=== PATIENT | male | born 1955 | race Caucasian/White ===

== ENCOUNTER 2017-12-13 19:47 | Emergency (ER) | payer BC ==
--- NOTE | 2017-12-13 20:29 | C.PDOC ---
History Of Present Illness 62 year old male is sent to the ED from an urgent care center for evaluation of questionable jaundice and left chest wall discomfort for the past week. Patient had a liver transplant for cryptogenic cirrhosis in . Patient had an abdominal US that was normal. Patient presented to the urgent care center c/o left trapezius pain and left shoulder pain after shoveling snow. Trapezius pain improved after an ice pack. Patient denies fever, chills, nausea. vomit, diarrhea, back pain, dysuria, hematuria. Time Seen by Provider: 12/13/17 20:10 Chief Complaint (Nursing): Upper Extremity Problem/Injury History Per: Patient History/Exam Limitations: no limitations Onset/Duration Of Symptoms: Days Current Symptoms Are (Timing): Gone Modifying Factors: None Exacerbating Factors: None Alleviating Factors: None Recent travel outside of the [place]: No Additional History Per: Patient Past Medical History Reviewed: Historical Data, Nursing Documentation, Vital Signs - Medical History PMH: Malignancy (oral) Other Surgeries: Liver transplant Family History: States: Unknown Family Hx - Social History Hx Tobacco Use: No Hx Alcohol Use: No Hx Substance Use: No - Immunization History Hx Tetanus Toxoid Vaccination: No Hx Influenza Vaccination: No Hx Pneumococcal Vaccination: Yes Review Of Systems Constitutional: Negative for: Fever, Chills Cardiovascular: Positive for: Chest Pain Gastrointestinal: Negative for: Nausea, Vomiting, Abdominal Pain Musculoskeletal: Positive for: Shoulder Pain Skin: Negative for: Rash Neurological: Negative for: Weakness, Numbness, Headache Physical Exam - Physical Exam Appears: Non-toxic, No Acute Distress Skin: Normal Color, Warm, Dry, No Rash Head: Atraumatic, Normacephalic Eye(s): bilateral: Normal Inspection Nose: No Discharge Oral Mucosa: Moist Neck: Normal ROM, Supple Chest: Symmetrical, Tenderness (intercostal left chest t4, t5 midaxillary line) Cardiovascular: Rhythm Regular, No Murmur Respiratory: Normal Breath Sounds, No Rales, No Rhonchi, No Wheezing Gastrointestinal/Abdominal: Soft, No Tenderness, No Guarding, No Rebound, Other ("Y" shaped scar from liver transplant, no pulsatile midline) Extremity: Normal ROM, No Tenderness, No Swelling Neurological/Psych: Oriented x3 Gait: Steady ED Course And Treatment - Laboratory Results Result Diagrams: 12/13/17 20:39 12/13/17 20:39 Lab Interpretation: Abnormal (LFT's mild elev, lipase 408) Progress Note: ice pack to L chest wall Reevaluation Time: 21:16 Reassessment Condition: Improved Medical Decision Making Medical Decision Making: Impression: chest wall discomfort, left trapezius Plan: * Labs * Patient states he wishes not to have any Motrin or Tylenol cause of his history of liver issues. mild elev LFT's prob c/w h/o liver transplant. No prior LFT's to compare. Will give results to pt to f/u with PMD @ [facility] pt NOT icteric- claims to be his mild baseline sallow L chest costochndritis from shoveling snow 1 wk ago, no pna/pnx (cxr earlier today from outside source, report and exam c/w same. Disposition Doctor Will See Patient In The: Office Counseled Patient/Family Regarding: Studies Performed, Diagnosis - Disposition Disposition: HOME/ ROUTINE Disposition Time: 21:18 Condition: GOOD Forms: [facility] (Nigerien) - Clinical Impression Clinical Impression: Chest wall discomfort - Scribe Statement The provider has reviewed the documentation as recorded by the Scribe Yordy Campbell All medical record entries made by the Scribe were at my direction and personally dictated by me. I have reviewed the chart and agree that the record accurately reflects my personal performance of the history, physical exam, medical decision making, and the department course for this patient. I have also personally directed, reviewed, and agree with the discharge instructions and disposition.
[2017-12-13 20:43] LABS: EOS # 0.4 K/uL (0.0-0.7); LYMPH # 0.8 K/uL (1.0-4.3)
[2017-12-13 20:48] LABS: BASO % 1.3 % (0.0-2.0); EOS % 12.2 % (0.0-4.0); HEMOGLOBIN 12.2 g/dL (12.0-18.0); LYMPH % 21.7 % (20.0-40.0); MEAN CELL VOLUME 94.4 fL (80.0-94.0); MEAN CORPUSCULAR HEMOGLOBIN 32.8 pg (27.0-31.0); MEAN CORPUSCULAR HGB CONC 34.7 g/dL (33.0-37.0); MEAN PLATELET VOLUME 7.4 fL (7.2-11.7); MONO # 0.3 K/uL (0.0-0.8); MONO % 7.4 % (0.0-10.0); NEUT % 57.4 % (50.0-75.0); NRBC % 0.1 % (0.0-2.0); RBC 3.71 Mil/uL (4.40-5.90); RED CELL DISTRIBUTION WIDTH 14.8 % (11.5-14.5); WHITE BLOOD COUNT 3.5 K/uL (4.8-10.8)
[2017-12-13 20:53] LABS: SQUAMOUS EPITHIAL 1 /hpf (0-5); URINE BILIRUBIN NEGATIVE (NEGATIVE); URINE BLOOD NEGATIVE (NEGATIVE); URINE CLARITY Clear (Clear); URINE GLUCOSE (UA) NORMAL (Normal); URINE LEUKOCYTE ESTERASE NEG Leu/uL (Negative); URINE PROTEIN NEGATIVE (NEGATIVE)
[2017-12-13 20:54] LABS: ALB/GLOB RATIO 0.9 (1.0-2.1); ALBUMIN 3.8 g/dL (3.5-5.0); ALT/SGPT 232 U/L (21-72); AST/SGOT 217 U/L (17-59); BLOOD UREA NITROGEN 22 mg/dL (9-20); CALCIUM 9.1 mg/dl (8.6-10.4); GFR AFRICAN-AMERICAN > 60; GFR NON-AFRICAN AMERICAN > 60; LIPASE 408 U/L (23-300); URINE COLOR YELLOW (YELLOW)
[2017-12-13 21:39] VITALS: BP 136/88; PULSE 78; RESP 18; TEMP 98.2; O2SAT 97
== END 2017-12-13 21:45 | disposition home or self-care (01) ==
LOC: C.ER 19:47
DX: R07.89 Other chest pain (principal)

== ENCOUNTER 2018-03-20 08:25 | Emergency (ER) | payer BC ==
[2018-03-20 08:38] VITALS: BMI 16.0
[2018-03-20] MEDS ORDERED: DiphenhydrAMINE 50 mg/ml Inj IVP STA (09:29)
--- NOTE | 2018-03-20 09:33 | C.PDOC ---
History Of Present Illness Patient presents to ED c/o diffuse itching for approx 2 weeks. He denies cough , fever, runny nose, SOB, sensation of throat closing up, lip or tongue swelling. He has PMhx of asthma, liver transplant currently on Prograf, PMD and transplant physican are in [place]. Time Seen by Provider: 03/20/18 08:43 Chief Complaint (Nursing): Allergic Reaction History Per: Patient History/Exam Limitations: no limitations Onset/Duration Of Symptoms: Other ( 2 weeks) Current Symptoms Are (Timing): Still Present Severity: Mild Past Medical History Reviewed: Historical Data, Nursing Documentation, Vital Signs Vital Signs: Last Vital Signs Temp 98.3 F 03/20/18 11:53 Pulse 73 03/20/18 11:53 Resp 18 03/20/18 11:53 BP 169/74 H 03/20/18 11:53 Pulse Ox 99 03/20/18 12:58 - Medical History PMH: Asthma (childhood), Malignancy (oral) Other Surgeries: liver transplant Family History: States: No Known Family Hx - Social History Hx Tobacco Use: No Hx Alcohol Use: No Hx Substance Use: No - Immunization History Hx Tetanus Toxoid Vaccination: No Hx Influenza Vaccination: No Hx Pneumococcal Vaccination: Yes Review Of Systems Constitutional: Negative for: Fever, Chills, Weakness, Malaise ENT: Negative for: Nose Congestion Cardiovascular: Negative for: Chest Pain, Palpitations Respiratory: Negative for: Cough, Shortness of Breath Skin: Positive for: Other (scattered macules, diffuse urticaria) Physical Exam - Physical Exam Appears: Well, Non-toxic, No Acute Distress, Chronically Ill Skin: Jaundice (mild), Other (scattered small macules on arms, back) Eye(s): bilateral: Scleral Icterus Oral Mucosa: Moist Cardiovascular: Rhythm Regular Respiratory: Normal Breath Sounds, No Rales, No Rhonchi, No Wheezing Gastrointestinal/Abdominal: Normal Exam, Bowel Sounds, Soft, No Tenderness, No Distention, No Guarding, No Rebound, Other (RUQ surigical scar) Neurological/Psych: Oriented x3 Gait: Steady ED Course And Treatment - Laboratory Results Result Diagrams: 03/20/18 10:10 03/20/18 10:10 O2 Sat by Pulse Oximetry: 99 (RA) Pulse Ox Interpretation: Normal Progress Note: Blood work ordered and reviewed. IV benadryl given for pruritis. Discussed patient with his transplant physician Dr. Familia Hsieh, recommends patient be transferred to [facility] for further workup and liver biopsy. Patient states he is not willing to be transferred, currently only has insurance in [place]. He has spoken with his boss, will start having more comprehensive insurance March 30. Message left on Dr. Hsieh's phone to let him know patient is refusing transfer. 12:00pm- Call made to GI news production assistant for their recommedation. 12:54pm- Spoke with news production assistant GI Dr. Spencer, recommends patient be transferred to [facility]. Patient however refuses, states he prefers to go to [facility] when his insurance kicks in, will sign out AMA. Reevaluation Time: 12:55 Reassessment Condition: Unchanged (Patient has signed out against my medical advice, and he understands that by doing so he risks worsening of his current condition, liver failure/rejection or possibly even . He was instructed to follow up at [facility]/with Dr. Hsieh once insurance kicks in March 30, and understands he should return to ED immediately in the interim if he has worsening or concerning symptoms.) Critical Care Time - Critical Care Note Total Time (in mins): 45 Documented critical care: time excludes all time spent performing seperately billable procedures. Disposition Counseled Patient/Family Regarding: Studies Performed, Diagnosis, Need For Followup - Disposition Referrals: [facility] [Outside] Disposition: AGAINST MEDICAL ADVICE Disposition Time: 12:55 Condition: STABLE Additional Instructions: YOU NEED TO BE SEEN AT [facility] SOON POSSIBLE RETURN TO [facility] ER IF YOU HAVE ANY CONCERNING SYMPTOMS Instructions: Acute Liver Failure, Leaving Against Medical Advice Forms: (AMA) Informed Refusal, [employer] (Gibraltarian), Work Excuse Print Language: KAZAKH - Clinical Impression Clinical Impression: Elevated liver enzymes, Acute liver failure, Left against medical advice
[2018-03-20] MEDS ORDERED: DiphenhydrAMINE 50 mg/ml Inj ONE (10:15)
[2018-03-20 10:19] LABS: BASO % 0.7 % (0.0-2.0); EOS # 0.4 K/uL (0.0-0.7); EOS % 11.7 % (0.0-4.0); HEMOGLOBIN 11.7 g/dL (12.0-18.0); LYMPH # 0.6 K/uL (1.0-4.3); LYMPH % 20.4 % (20.0-40.0); MEAN CELL VOLUME 93.6 fL (80.0-94.0); MEAN CORPUSCULAR HEMOGLOBIN 32.9 pg (27.0-31.0); MEAN CORPUSCULAR HGB CONC 35.1 g/dL (33.0-37.0); MEAN PLATELET VOLUME 7.6 fL (7.2-11.7); MONO # 0.2 K/uL (0.0-0.8); MONO % 7.9 % (0.0-10.0); NEUT # 1.9 K/uL (1.8-7.0); NEUT % 59.3 % (50.0-75.0); NRBC % 0.1 % (0.0-2.0); RBC 3.57 Mil/uL (4.40-5.90); RED CELL DISTRIBUTION WIDTH 16.5 % (11.5-14.5); WHITE BLOOD COUNT 3.1 K/uL (4.8-10.8)
[2018-03-20 10:46] LABS: ALB/GLOB RATIO 0.8 (1.0-2.1); ALBUMIN 3.6 g/dL (3.5-5.0); BILIRUBIN,DIRECT 3.4 mg/dL (0.0-0.4); CALCIUM 8.8 mg/dl (8.6-10.4); GFR AFRICAN-AMERICAN > 60; GFR NON-AFRICAN AMERICAN > 60; LIPASE 290 U/L (23-300)
[2018-03-20 10:47] LABS: ALT/SGPT 290 U/L (21-72); AST/SGOT 356 U/L (17-59); BLOOD UREA NITROGEN 21 mg/dL (9-20)
[2018-03-20 11:54] VITALS: BP 169/74; PULSE 73; RESP 18; TEMP 98.3
[2018-03-20 12:28] VITALS: O2SAT 99
== END 2018-03-20 13:09 | disposition left against medical advice (07) ==
LOC: C.ER 08:25
DX: K72.00 Acute and subacute hepatic failure without coma (principal); R74.8 Abnormal levels of other serum enzymes; Z94.4 Liver transplant status
CPT/HCPCS: 80053; 82248; 83690; 85025; 96374; 99284; J1200

== ENCOUNTER 2018-10-20 19:24 | Emergency (ER) | payer BC, OTHER ==
[2018-10-20 19:24] VITALS: BMI 16.0
[2018-10-20 19:30] VITALS: BP 158/89; PULSE 73; TEMP 97.8; O2SAT 98
--- NOTE | 2018-10-20 20:07 | C.PDOC ---
History Of Present Illness 63 year old male presents to the ER stating something flew into his left eye. Patient was outside and believes the wind blew some dust or debris into his left eye. He used an eye pressure cup to irrigate the eye when he noticed some redness which concerned him. Denies pain or tearing. Time Seen by Provider: 10/20/18 19:37 Chief Complaint (Nursing): Eye Problem History Per: Patient History/Exam Limitations: no limitations Onset/Duration Of Symptoms: Hrs Current Symptoms Are (Timing): Still Present Wears Contact Lens?: No Associated Symptoms: Other (Redness). denies: Pain, Discharge From Eye Recent travel outside of the [place]: No Past Medical History Reviewed: Historical Data, Nursing Documentation, Vital Signs Vital Signs: Last Vital Signs Temp 97.8 F 10/20/18 19:28 Pulse 73 10/20/18 19:28 Resp 16 10/20/18 19:28 BP 158/89 H 10/20/18 19:28 Pulse Ox 98 10/20/18 19:28 - Medical History PMH: Asthma (childhood), Malignancy (oral) Family History: States: Unknown Family Hx - Social History Hx Tobacco Use: No Hx Alcohol Use: No Hx Substance Use: No - Immunization History Hx Tetanus Toxoid Vaccination: No Hx Influenza Vaccination: No Hx Pneumococcal Vaccination: Yes Review Of Systems Eyes: Positive for: Redness. Negative for: Pain, Vision Change Physical Exam - Physical Exam Appears: Non-toxic Skin: Normal Color, Warm, Dry Head: Atraumatic, Normacephalic, No Swelling (facial) Eye(s): right: Normal Inspection, left: Other (Subconjunctival hemorrhage to left lateral nasal canthus. No foreign body or corneal abrasion. Visual acuity 20/20 OU, no swelling to left periorbital area or left eyelid.) Neurological/Psych: Oriented x3, Normal Speech ED Course And Treatment O2 Sat by Pulse Oximetry: 98 (Room air) Pulse Ox Interpretation: Normal Progress Note: Patient was reassure, he is resting comfortably in the ER in no acute distress, vitals are stable, will discharge home with instructions to follow up with PMD. Disposition Counseled Patient/Family Regarding: Diagnosis, Need For Followup, Rx Given - Disposition Referrals: Dax Ching MD [Staff Provider] - Disposition: HOME/ ROUTINE Disposition Time: 20:20 Condition: STABLE Additional Instructions: Please follow up with Eye doctor as directed Return to ER if worse Instructions: Subconjunctival Hemorrhage Forms: [facility] (Romanian) - Clinical Impression Clinical Impression: Subconjunctival hemorrhage - PA / INTERN ARCHITECT / Resident Statement MD/DO has reviewed & agrees with the documentation as recorded. - Scribe Statement The provider has reviewed the documentation as recorded by the Scribe Ricardo Guerra All medical record entries made by the Cynthiaibe were at my direction and personally dictated by me. I have reviewed the chart and agree that the record accurately reflects my personal performance of the history, physical exam, medical decision making, and the department course for this patient. I have also personally directed, reviewed, and agree with the discharge instructions and disposition.
[2018-10-20 20:32] VITALS: RESP 20
== END 2018-10-20 20:31 | disposition home or self-care (01) ==
LOC: C.ER 19:24
DX: H11.32 Conjunctival hemorrhage, left eye (principal)

== ENCOUNTER 2019-02-02 17:52 | Emergency (ER) | payer OTHER ==
[2019-02-02 17:52] VITALS: BMI 16.0
[2019-02-02 18:08] VITALS: BP 116/73; PULSE 80; RESP 18; TEMP 99.4; O2SAT 97
--- NOTE | 2019-02-02 18:24 | C.PDOC ---
History Of Present Illness 63 y/o male presents to the ER for evaluation of left sided neck pain which has gradually developed over the past few days. Patient admits, "pain started after changed pillow". Pt describes pain as tightness from occipital area extend down to Left shoulder area, worse with head rotation, more to Right side. Otherwise, Patient denies known direct trauma or injuries, fever,chills, headache,dizziness, visual changes, focal deficits, CP,SOB, dyspnea, palpitation, cough, nausea,vomiting, denies any other active complaints. Ambulatory, not in any apparent distress. Time Seen by Provider: 02/02/19 18:11 Chief Complaint (Nursing): Upper Extremity Problem/Injury History Per: Patient History/Exam Limitations: no limitations Onset/Duration Of Symptoms: Days Current Symptoms Are (Timing): Still Present Severity: Moderate Past Medical History Reviewed: Historical Data, Nursing Documentation, Vital Signs Vital Signs: Last Vital Signs Temp 99.4 F 02/02/19 18:05 Pulse 80 02/02/19 18:05 Resp 18 02/02/19 18:05 BP 116/73 02/02/19 18:05 Pulse Ox 97 02/02/19 18:05 Primary Care Provider: Non [facility] Provider, - Medical History PMH: Asthma (childhood), Malignancy (oral) Other Surgeries: Hx of surgeries Family History: States: No Known Family Hx - Social History Hx Tobacco Use: No Hx Alcohol Use: No Hx Substance Use: No - Immunization History Hx Tetanus Toxoid Vaccination: No Hx Influenza Vaccination: No Hx Pneumococcal Vaccination: Yes Review Of Systems Except As Marked, All Systems Reviewed And Found Negative. Constitutional: Negative for: Fever, Chills Cardiovascular: Negative for: Chest Pain Respiratory: Negative for: Shortness of Breath Gastrointestinal: Negative for: Nausea, Vomiting Musculoskeletal: Positive for: Neck Pain Neurological: Negative for: Headache, Dizziness Physical Exam - Physical Exam Appears: Well, Non-toxic, No Acute Distress Skin: Normal Color, Warm, No Rash, No Ecchymosis Head: Normacephalic Eye(s): bilateral: PERRL Ear(s): Bilateral: Normal Nose: No Flaring, No Discharge, No Deformity Oral Mucosa: Moist Neck: Decreased ROM (discofmort to Right side head rotation), Trachea Midline, No Midline Cervical Tenderness, No Step Off Deformity, Supple, Other (diffuse left lateral cervical tenderness along trapezium muscle with palpable spasm. N omidline tenderness, no skin changes) Cardiovascular: Rhythm Regular, No Murmur, No JVD Respiratory: No Decreased Breath Sounds, No Accessory Muscle Use, No Stridor, No Wheezing Extremity: Normal ROM, No Tenderness, No Swelling Neurological/Psych: Oriented x3, Normal Speech, Normal Motor, Normal Sensation, Normal Reflexes ED Course And Treatment O2 Sat by Pulse Oximetry: 97 (RA) Pulse Ox Interpretation: Normal Progress Note: On re-eval, pt is afebrile, hemodynamicaly stable. NOn-toxic. PulseOx 97% RA. Neck: SUpple, (-) JVD, (-) carotid bruits, (+) Left sided cervical strain with muscle spasm. Lungs: CTA B/L, BS equal B/L. Neuorlogicaly intact. ref. to f/u with PMD in 2-3 days for re-eval. return if any worsneing or new changes Disposition Counseled Patient/Family Regarding: Diagnosis, Need For Followup, Rx Given - Disposition Referrals: [facility] [Outside] Disposition: HOME/ ROUTINE Disposition Time: 18:24 Condition: STABLE Additional Instructions: Take medication as prescribed Follow up with PMD, Orthopedist in 2-3 days for re-evaluation. return to ED if any worsening or new changes Prescriptions: Prednisone [Deltasone] 20 mg PO DAILY #9 tablet traMADol [Ultram] 50 mg PO HS #7 tab Instructions: Torticollis, Adult Forms: [facility] (Bhutanese) - Clinical Impression Clinical Impression: Torticollis - PA / SPIRITUAL ADVISOR / Resident Statement MD/DO has reviewed & agrees with the documentation as recorded. - Scribe Statement The provider has reviewed the documentation as recorded by the Sasha Iqbal Provider Attestation All medical record entries made by the Cynthiaibe were at my direction and personally dictated by me. I have reviewed the chart and agree that the record accurately reflects my personal performance of the history, physical exam, medical decision making, and the department course for this patient. I have also personally directed, reviewed, and agree with the discharge instructions and disposition.
== END 2019-02-02 18:47 | disposition home or self-care (01) ==
LOC: C.ER 17:52
DX: M43.6 Torticollis (principal)